=== PATIENT | male | born 1980 | race Caucasian/White ===

== ENCOUNTER 2022-07-04 08:51 | Day surgery (SDC) | payer MEDICAID ==
[2022-07-01 12:48] LABS: BASOPHILS % (AUTO) 0.9 % (0-1); EOSINOPHILS # (AUTO) 0.1 X10'3 (0-0.9); EOSINOPHILS % (AUTO) 1.4 % (0-6); LYMPHOCYTES % (AUTO) 39.9 % (21-51); MEAN CORPUSCULAR HEMOGLOBIN 30.5 PG (27.0-31.0); MEAN CORPUSCULAR HGB CONC 33.6 g/dL (33.0-36.5); MEAN CORPUSCULAR VOLUME 90.8 FL (78-98); MEAN PLATELET VOLUME 8.1 FL (7.4-10.4); MONOCYTES # (AUTO) 0.3 X10'3 (0-0.9); MONOCYTES % (AUTO) 6.8 % (2-12); NEUTROPHILS # (AUTO) 2.5 X10'3 (1.8-7.7); PRE OP HEMATOCRIT 45.6 % (42.0-52.0); PRE OP HEMOGLOBIN 15.3 g/dL (14.0-17.9); PRE OP PLATELET COUNT 369 X10'3 (140-440); RED BLOOD COUNT 5.03 X10'6 (4.70-6.10); RED CELL DISTRIBUTION WIDTH 13.7 % (11.5-14.5)
[2022-07-01 13:01] LABS: ALBUMIN 4.1 G/DL (3.4-5.0); ALBUMIN/GLOBULIN RATIO 1.2 (1.1-1.5); ALKALINE PHOSPHATASE 69 IU/L (46-116); BLOOD UREA NITROGEN 14 MG/DL (7-18); BUN/CREATININE RATIO 19.4 (5.4-32.0); CALCIUM 8.8 MG/DL (8.5-10.1); CHLORIDE 103 MMOL/L (99-107); CREATININE 0.72 MG/DL (0.60-1.10); PRE OP ALT 23 U/L (30-65); PRE OP ANION GAP 8 (8-16); PRE OP AST 17 U/L (10-37); PRE OP BILIRUB, TOTAL 0.3 MG/DL (0.0-1.0); PRE OP GLUCOSE 94 MG/DL (70-104); PRE OP POTASSIUM 4.2 MMOL/L (3.4-5.1); PRE OP SODIUM 139 MMOL/L (135-145); TOTAL CARBON DIOXIDE 27.8 MMOL/L (24-32); TOTAL PROTEIN 7.4 G/DL (6.4-8.2); eGFR > 90 ML/MIN
[~2022-07-04] VITALS: Ht 182.9 cm; Wt 111.8 kg
[2022-07-04] VITALS (10 sets, daily range): BP systolic 106–119; BP diastolic 58–79
[~2022-07-04 08:51] MED LIST: BUPIVAcaine 0.5% inj/PF 30 ML ONE; NO HOME MEDS; ceFAZolin inj. 2,000 MG in dextrose 5%-water 100 ML IV ONE; famotidine 20mg tablet PO ONE; ringers solution, lacted 1,000 ML IV SCH
[2022-07-04] MEDS ORDERED: ondansetron/PF 4mg/2ml inj IV PRN (09:25)
[2022-07-04] MEDS ORDERED: ringers solution, lacted 1,000 ML IV SCH (09:25)
[2022-07-04] MEDS ORDERED: labetalol 20mg/4ml (5mg/ml) syringe IV PRN (09:25)
[2022-07-04] MEDS ORDERED: morphine 4 MG/ML inj SYRINge IV PRN (09:25)
[2022-07-04] MEDS ORDERED: morphine 2 MG/ML inj. syringe IV PRN (09:25)
[2022-07-04] MEDS ORDERED: midazolam 1 mg/ML 2ml injection ONE (12:10)
[2022-07-04] MEDS ORDERED: morphine 10mg/ml inj. ONE (12:10)
[2022-07-04] MEDS ORDERED: BUPIVAcaine 0.5% inj/PF 30 ml vial IJ ONE (12:35)
--- NOTE | 2022-07-04 12:40 | NUR ---
Received from OR via , accompanied by Anesthesiologist DR SLAUGHTER and report given by Anesthesiolgist. VSS. 20G IN LEFT HAND, ON ROOM AIR, DRESSING WITH JOSEPH BANDAGE ON RIGHT HAND. Addendum: 07/04/22 at 1307 by Aurora Villalba RN Amended: Links added.
--- NOTE | 2022-07-04 13:50 | NUR ---
ALL DISCHARGE CRITERIA HAS BEEN MET. VSS, PAIN AT A TOLERABLE LEVEL, ABLE TO SAFELY AMBULATE AND TRANSFER SELF. IV TAKEN OUT WITHOUT ANY COMPLICATIONS. ALL DISCHARGE INSTRUCTIONS COVERED WITH PATIENT AND ALL QUESTIONS ANSWERED. PATIENT TAKEN OUT VIA WHEELCHAIR WITH ALL BELONGINGS TO PERSONAL VEHICLE WHERE FRIEND DROVE PATIENT HOME. Addendum: 07/04/22 at 1414 by Warren Hudson RN Amended: Links added.
== END 2022-07-04 13:50 | disposition home or self-care (01) ==
LOC: PAS 08:51
PROVIDERS: ATTEND Orthopaedic Surgery Hand Surgery
DX: G56.01 Carpal tunnel syndrome, right upper limb (principal); Z79.899 Other long term (current) drug therapy; Z98.890 Other specified postprocedural states
CPT/HCPCS: 36415; 64721; 80053; 82948; 85025; 93005; J0690; J2250; J2270; J2274; J7030; J7060; J7120; S0020; Z7506; Z7512; A4215